=== PATIENT | male | born 1935 | race African-American/Black ===

== ENCOUNTER 2018-02-03 19:29 | Inpatient (IN) | payer MEDICARE, OTHER ==
[~2018-02-03] VITALS: Ht 185.4 cm; Wt 65.3 kg
[2018-02-04 00:20] VITALS: BP 101/64; BMI 19.0
[2018-02-04] MEDS ORDERED: METOPROLOL TART25 MG PO (02:42)
[2018-02-04] MEDS ORDERED: ELIQUIS2.5 MG PO (02:42)
[2018-02-04] MEDS ORDERED: NORVASC10 MG PO (02:43)
[2018-02-04] MEDS ORDERED: FOLIC ACID1 MG PO (02:44)
[2018-02-04] MEDS ORDERED: LIPITOR20 MG PO (02:44)
[2018-02-04] MEDS ORDERED: IBUPROFEN600 MG PO (02:45)
[2018-02-04] MEDS ORDERED: FUROSEMIDE20 MG PO (02:46)
[2018-02-04] MEDS ORDERED: LEVO-T125 MCG PO (02:47)
[2018-02-04] MEDS ORDERED: OXYBUTYNIN CHLOR5 MG PO (02:47)
[2018-02-04] MEDS ORDERED: BAYER CHEWABLE81 MG PO (02:48)
[2018-02-04] MEDS ORDERED: PRIMSOL50 MG/5 ML PO (02:51)
[2018-02-04] MEDS ORDERED: METHOTREXATE2.5 MG PO (02:52)
[2018-02-04] MEDS ORDERED: POTASSIUM CHLO10 ME1 PO (02:53)
[2018-02-04] MEDS ORDERED: MULTI-DAY VITAM1 TAB PO (02:54)
[2018-02-04] MEDS ORDERED: ASCORBIC ACID500 MG PO (02:55)
[2018-02-04] MEDS ORDERED: ZINC50 MG PO (02:55)
[2018-02-04] MEDS ORDERED: RESTORIL15 MG PO (02:57)
[2018-02-04] MEDS ORDERED: SOLU-MEDRO40 MG/1 M1 IV (02:58)
[2018-02-04] MEDS ORDERED: IPRAT-ALBUT 0.5-3 ML UPD (03:11)
[2018-02-04 04:00] VITALS: BP 117/72
[2018-02-04 06:59] LABS: ALBUMIN 1.5 g/dL (3.4-5.0); ALKALINE PHOSPHATASE 93 U/L (46-116); ALT (SGPT) 24 U/L (10-68); BILIRUBIN - TOTAL 0.33 mg/dL (0.2-1.3); CALC OSMOLALITY 294 mosm/kg (275-300); CALCIUM 8.5 mg/dL (8.5-10.1); CARBON DIOXIDE 26.1 mmol/L (21.0-32.0); CHLORIDE - SERUM 108 mmol/L (98-107); CKMB 0.9 U/L (0.0-3.6); CREATINE KINASE 10 UL (21-232); CREATININE - SERUM 1.4 mg/dL (0.6-1.3); GLUCOSE 129 mg/dL (74-106); POTASSIUM - SERUM 4.8 mmol/L (3.5-5.1); PROTEIN - SERUM 5.7 g/dL (6.4-8.2); SODIUM 141 mmol/L (136-145); TROPONIN-I 0.019 ng/mL (0.000-0.060); UREA NITROGEN 46 mg/dL (7-18); eGFR NON AFRICAN AMERICAN 51 mL/min (90-120)
[2018-02-04 08:32] VITALS: BP 125/68
[2018-02-04 10:55] VITALS: BP 93/55
[2018-02-04 13:23] VITALS: Ht 185.4 cm; Wt 65.3 kg
[2018-02-04 15:20] VITALS: BP 119/71
[2018-02-04 22:10] VITALS: BP 134/69
[2018-02-05] VITALS: BP 121/73
[2018-02-05 04:27] LABS: BASOPHILS 0 % (0-2); EOSINOPHILS 0.8 % (0-7); HEMATOCRIT 36.8 % (42.0-54.0); HEMOGLOBIN 11.7 g/dL (13.5-17.5); IMMATURE GRANULOCYTES 0.4 % (0-5); LYMPHOCYTES 1.6 % (15-50); MCH 30.5 pg (26.0-34.0); MCHC 31.8 g/dL (31.0-37.0); MCV 96.1 fL (80.0-100.0); MEAN PLATELET VOLUME 9.3 fL (7.4-10.4); MONOCYTES 1.3 % (2-11); NEUTROPHILS 95.9 % (40-80); PLATELET COUNT 286 10x3/uL (130-400); RBC 3.83 10x6/uL (4.20-6.10); RDW 15.7 % (11.5-14.5); WBC 14.5 10x3/uL (4.8-10.8)
[2018-02-05 04:44] VITALS: BP 127/74
[2018-02-05 04:57] LABS: ALBUMIN 1.5 g/dL (3.4-5.0); ALKALINE PHOSPHATASE 87 U/L (46-116); BILIRUBIN - TOTAL 0.46 mg/dL (0.2-1.3); CALC OSMOLALITY 296 mosm/kg (275-300); CALCIUM 8.6 mg/dL (8.5-10.1); CARBON DIOXIDE 27.9 mmol/L (21.0-32.0); CHLORIDE - SERUM 109 mmol/L (98-107); CKMB 0.5 U/L (0.0-3.6); CREATINE KINASE 8 UL (21-232); CREATININE - SERUM 1.3 mg/dL (0.6-1.3); GLUCOSE 105 mg/dL (74-106); POTASSIUM - SERUM 4.6 mmol/L (3.5-5.1); PROTEIN - SERUM 5.7 g/dL (6.4-8.2); SODIUM 143 mmol/L (136-145); TROPONIN-I 0.033 ng/mL (0.000-0.060); UREA NITROGEN 45 mg/dL (7-18); eGFR NON AFRICAN AMERICAN 56 mL/min (90-120)
[2018-02-05 05:00] LABS: ALT (SGPT) 32 U/L (10-68)
[2018-02-05 08:23] VITALS: BP 123/72
[2018-02-05 12:00] VITALS: BP 123/71
== END 2018-02-05 18:14 | disposition home health service (06) | DRG 308 ==
LOC: D.M2 19:29
PROVIDERS: Family Medicine; Internal Medicine Nephrology
DX: I48.91 Unspecified atrial fibrillation (principal); E43 Unspecified severe protein-calorie malnutrition; Z68.1 Body mass index [BMI] 19.9 or less, adult; J44.9 Chronic obstructive pulmonary disease, unspecified; Z86.73 Personal history of transient ischemic attack (TIA), and cerebral infarction without residual deficits; I50.9 Heart failure, unspecified; E07.9 Disorder of thyroid, unspecified; M62.3 Immobility syndrome (paraplegic)